=== PATIENT | female | born 1965 | race Caucasian/White ===

== ENCOUNTER 2017-01-24 11:34 | Emergency (ER) | payer MEDICAID ==
[~2017-01-24] VITALS: Ht 152.4 cm; Wt 77.3 kg
[2017-01-24 11:39] VITALS: Ht 152.4 cm; Wt 77.3 kg
--- NOTE | 2017-01-24 11:41 | ERA ---
ER Documentation Chief Complaint Date/Time DATE: 01/24/17 TIME: 11:41 Chief Complaint Dizziness HPI The patient is a 51-year-old female, presenting to the ER because of dizziness, she feels as if the room is spinning. She had similar symptoms previously, denies fever, chills, neck pain, chest pain, dyspnea, abdominal pain, vomiting, dysuria, diarrhea, constipation. She does not smoke or drink Past medical history: Hypertension, diabetes mellitus Past surgical history: Ventral herniorrhaphy ROS All systems reviewed and are negative except as per history of present illness. Medications Home Meds Active Scripts Meclizine Hcl* (Meclizine Hcl*) 25 Mg Tablet, 25 MG PO Q8H Y for DIZZINESS, #10 TAB Prov:TAYLOR BENJAMIN MD 01/24/17 Allergies Allergies: Coded Allergies: No Known Allergy (Unverified , 01/24/17) Physical Exam Vitals Vital Signs Date Time Temp Pulse Resp B/P Pulse Ox O2 Delivery O2 Flow Rate FiO2 01/24/17 12:05 89 20 150/77 99 Room Air 01/24/17 11:39 98.4 78 18 170/126 100 Physical Exam Const: No acute distress. Head: Atraumatic. Eyes: Normal Conjunctiva. ENT: Normal External Ears, Nose and Mouth. Neck: Full range of motion. No meningismus. Resp: Clear to auscultation bilaterally. Cardio: Regular rate and rhythm, no murmurs. Abd: Soft, non distended, normal bowel sounds, non tender. Skin: No petechiae or rashes. Back: No midline or flank tenderness. Ext: No cyanosis, or edema. Neur: Awake and alert. No focal deficit Psych: Normal Mood and Affect. Result Diagram: 01/24/17 1115 01/24/17 1115 Results 24 hrs Laboratory Tests Test 01/24/17 11:15 Activated Partial Thromboplast Time 26.9Sec Anion Gap 19 Basophils # 0.010^3/ul Basophils % 0.3% Blood Urea Nitrogen 8mg/dl Calcium Level 9.8mg/dl Carbon Dioxide Level 27mmol/L Chloride Level 101mmol/L Creatinine 0.38mg/dl Eosinophils # 0.310^3/ul Eosinophils % 3.1% Glucose Level 174mg/dl Hematocrit 43.9% Hemoglobin 14.1g/dl INR International Normalized Ratio 0.91 Lymphocytes # 2.710^3/ul Lymphocytes % 29.4% Mean Corpuscular Hemoglobin 28.0pg Mean Corpuscular Hemoglobin Concent 32.1g/dl Mean Corpuscular Volume 87.3fl Mean Platelet Volume 10.4fl Monocytes # 0.610^3/ul Monocytes % 6.6% Neutrophils # 5.510^3/ul Neutrophils % 60.4% Nucleated Red Blood Cells # 0.010^3/ul Nucleated Red Blood Cells % 0.0/100WBC Platelet Count 73694^3/UL Potassium Level 3.8mmol/L Prothrombin Time 12.3Sec Prothrombin Time Ratio 1.0 Red Blood Count 5.0310^6/ul Red Cell Distribution Width 13.4% Sodium Level 143mmol/L White Blood Count 9.110^3/ul Current Medications Medications (Trade) Dose Ordered Sig/Kylie Route PRN Reason Start Time Stop Time Status Last Admin Dose Admin Meclizine HCl (Antivert) 25 mg ONCE ONCE PO 01/24/17 12:30 01/24/17 12:31 DC 01/24/17 12:45 Procedures/MDM [place] [id number] Radiology Main Line: [phone] DIAGNOSTIC IMAGING REPORT Patient: CRISTEL ALMANZAR : 1965 Age: 51 Sex: F [id number] DOS: 01/24/17 1146 Ordering MD: TAYLOR BENJAMIN MD Location: E/R Room/Bed: PROCEDURE: CT Head without. CLINICAL INDICATION: Syncope. TECHNIQUE: The study was performed utilizing a multi-slice, multidetector CT scanner. Direct spiral 1 mm axial sections were obtained through the head without the use of intravenous contrast material. 1 or more of the following dose reduction techniques were utilized: Automated exposure control, adjustment of the mA and/or kV according to patient's size, iterative reconstruction technique. Coronal and sagittal reformations were obtained. The images were reviewed on a PACS workstation. RADIATION DOSE: CTDIvol: 43.4 mGy DLP: 630.2 mGy-cm COMPARISON: No prior studies are available for comparison. FINDINGS: There is no intracranial hemorrhage, extra-axial fluid collection, mass lesion, midline shift or hydrocephalus. The ventricles, sulci and cisterns are within normal limits. The white matter is unremarkable. The gerard-white matter differentiation is preserved. The basal cisterns are patent. The midline structures are intact. The orbits, calvarium and extracranial soft tissues are normal in appearance. The visualized paranasal sinuses, mastoid air cells and middle ear cavities are normally aerated. IMPRESSION: 1. No acute intracranial abnormality. No intracranial hemorrhage, extra-axial fluid collection, mass lesion or hydrocephalous. RPTAT: DD .Johnson Ramirez MD, MD Date Time Electronically viewed and signed by .Johnson Ramirez MD, MD on 01/24/2017 12: 15 .S/ CC: TAYLOR BENJAMIN MD EKG: Read by emergency physician Rate/Rhythm: Normal Sinus Rhythm 69 beats/min QRS, ST, T-waves: No ST elevation, no T inversion Impression: Normal EKG MEDICAL MAKING DECISION: The patient is a 51-year-old female, presenting to the ER because of acute dizziness of unclear etiology, most likely benign positional vertigo. She was treated with Antivert with good response. The differential diagnoses considered include but are not limited to central causes such as cerebellar infarct, cerebellar hemorrhage, cerebellar tumor, acoustic neuroma, peripheral causes such as benign positional vertigo, labyrinthitis, medication, Meniere's disease. Her blood pressure improved without intervention Departure Diagnosis: Primary Impression: Dizziness Condition: Good Comments She was discharged with Antivert I discussed the findings with the patient. I advised the patient to follow-up with the primary physician in about 1-2 days, sooner if needed and return if any concern. TAYLOR BENJAMIN MD Jan 24, 2017 11:41
[2017-01-24 12:02] LABS: ADD SCAN DIFF NO
[2017-01-24 12:05] VITALS: BP 150/77; PULSE 89; RESP 20
[2017-01-24 12:15] LABS: POTASSIUM 3.8 mmol/L (3.5-5.1)
--- NOTE | 2017-01-24 12:15 | RADRPT ---
PROCEDURE: CT Head without. CLINICAL INDICATION: Syncope. TECHNIQUE: The study was performed utilizing a multi-slice, multidetector CT scanner. Direct spira l 1 mm axial sections were obtained through the head without the use of intravenous contrast materia l. 1 or more of the following dose reduction techniques were utilized: Automated exposure control, adjustment of the mA and/or kV according to patient's size, iterative reconstruction technique. Co carlota and sagittal reformations were obtained. The images were reviewed on a PACS workstation. RADIATION DOSE: CTDIvol: 43.4 mGyDLP: 630.2 mGy-cm COMPARISON: No prior studies are available for comparison. FINDINGS: There is no intracranial hemorrhage, extra-axial fluid collection, mass lesion, midline shift or hyd rocephalus. The ventricles, sulci and cisterns are within normal limits. The white matter is unrem arkable. The gerard-white matter differentiation is preserved. The basal cisterns are patent. The m idline structures are intact. The orbits, calvarium and extracranial soft tissues are normal in ester earance. The visualized paranasal sinuses, mastoid air cells and middle ear cavities are normally ae rated. IMPRESSION: 1. No acute intracranial abnormality. No intracranial hemorrhage, extra-axial fluid collection, ma ss lesion or hydrocephalous. RPTAT: DD .Johnson Ramirez MD, MD Date Time Electronically viewed and signed by .Johnson Ramirez MD, MD on 01/24/2017 12:15 .S/
[2017-01-24 12:18] LABS: CREATININE 0.38 mg/dl (0.44-1.00)
[2017-01-24 12:19] LABS: CALCIUM 9.8 mg/dl (8.4-10.2)
[2017-01-24 12:21] LABS: BASOPHILS % 0.3 % (0.0-2.0); EOSINOPHILS # 0.3 10^3/ul (0.0-0.5); EOSINOPHILS % 3.1 % (0.0-7.0); HEMATOCRIT 43.9 % (37.0-47.0); HEMOGLOBIN 14.1 g/dl (12.0-16.0); LYMPHOCYTES # 2.7 10^3/ul (0.8-2.9); LYMPHOCYTES % 29.4 % (15.0-51.0); MEAN CORPUSCULAR HGB CONC 32.1 g/dl (32.0-37.0); MEAN CORPUSCULAR VOLUME 87.3 fl (82.0-101.0); MEAN PLATELET VOLUME 10.4 fl (7.4-10.4); MONOCYTE # 0.6 10^3/ul (0.3-0.9); MONOCYTES % 6.6 % (0.0-11.0); NEUTROPHIL # 5.5 10^3/ul (1.6-7.5); NEUTROPHILS % 60.4 % (39.0-77.0); PLATELET COUNT 341 10^3/UL (140-415); RED BLOOD COUNT 5.03 10^6/ul (4.20-5.40); RED CELL DISTRIBUTION WIDTH 13.4 % (11.5-14.5); WHITE BLOOD COUNT 9.1 10^3/ul (4.8-10.8)
[2017-01-24 12:22] LABS: INR 0.91; PROTIME 12.3 Sec (12.2-14.2)
[2017-01-24 12:23] LABS: PARTIAL THROMBOPLASTIN TIME 26.9 Sec (25.0-35.0)
[2017-01-24] MEDS ORDERED: MECLIZINE 12.5 MG TAB PO ONE (12:30)
[2017-01-24] MEDS ORDERED: MECL-77 PO (12:36)
== END 2017-01-24 13:39 | disposition home or self-care (01) ==
LOC: E/R 11:34
DX: R42 Dizziness and giddiness (principal); I10 Essential (primary) hypertension; E11.9 Type 2 diabetes mellitus without complications; R55 Syncope and collapse
CPT/HCPCS: 36415; 70450; 80048; 85025; 85610; 85730; 93005; Z7502; Z7610